=== PATIENT | male | born 1960 | race Caucasian/White ===

== ENCOUNTER 2019-11-18 14:42 | Emergency (ER) | payer BC ==
[2019-11-18 14:52] VITALS: BP 101/55
== END 2019-11-18 16:54 | disposition left against medical advice (07) ==
LOC: ER 14:42
DX: Z53.21 Procedure and treatment not carried out due to patient leaving prior to being seen by health care provider (principal)

== ENCOUNTER 2019-11-25 13:07 | Inpatient (IN) | payer BC ==
[2019-11-25] MEDS ORDERED: HYDROCODONE/ACETAMINOPHEN 5-325 MG TABLET PO ONE (15:13)
--- NOTE | 2019-11-25 15:16 | ER Document Report ---
ED Medical Screen (RME) - General Chief Complaint: Insect Bite Stated Complaint: SPIDER BITE Time Seen by Provider: 11/25/19 15:09 Primary Care Provider: KEVIN CABRERA MD [Primary Care Provider] - Follow up as needed Notes: Patient is a 59-year-old male who presents to the emergency department with a chief complaint of right fourth finger pain. Patient states that he was "bit by something" but cannot recall what it was. This happened 2 days ago. Patient states that he is unable to flex or extend his finger. States that his "whole body does not feel right." States he took [id number] BC powders to help with the pain, but did not help. Exam: Patient unable to flex right fourth digit. I have greeted and performed a rapid initial assessment of this patient. A comprehensive ED assessment and evaluation of the patient, analysis of test results and completion of medical decision making process will be conducted by an additional ED providers. TRAVEL OUTSIDE OF THE [place] IN LAST 30 DAYS: No - Related Data Allergies/Adverse Reactions: No Known Allergies Allergy (Unverified 12/19/13 20:08) Home Medications: flomax, zoloft, tadalafil, lisinopril Past Medical History - Social History Chew tobacco use (# tins/day): No Frequency of alcohol use: Heavy Family history: Reviewed & Not Pertinent Neurological Medical History: Denies: Hx Seizures GI Medical History: Comment Only: Hx Ulcer - anxiety, L5 herniated disc, right shoulder muscle tear, RLS Musculoskeltal Medical History: Reports Hx Arthritis Past Surgical History: Reports: Hx Orthopedic Surgery - multiple - Immunizations Hx Diphtheria, Pertussis, Tetanus Vaccination: Yes Physical Exam - Vital signs Vitals: Temp Pulse Resp BP Pulse Ox 98.0 F 69 18 100/65 95 11/25/19 13:12 11/25/19 13:12 11/25/19 13:12 11/25/19 13:12 11/25/19 13:12 Course - Vital Signs Vital signs: Temp Pulse Resp BP Pulse Ox 98.0 F 69 18 100/65 95 11/25/19 15:09 11/25/19 13:12 11/25/19 13:12 11/25/19 13:12 11/25/19 13:12 Doctor's Discharge - Discharge Referrals: KEVIN CABRERA MD [Primary Care Provider] - Follow up as needed
[2019-11-25 16:04] LABS: ABSOLUTE BASOPHILS # (AUTO) 0.1 10^3/uL (0.0-0.2); ABSOLUTE LYMPHOCYTES (AUTO) 1.1 10^3/uL (0.5-4.7); ABSOLUTE MONOCYTES (AUTO) 0.9 10^3/uL (0.1-1.4); ABSOLUTE NEUT (AUTO) 10.2 10^3/uL (1.7-8.2); BASOPHILS % (AUTO) 0.6 % (0-2); EOSINOPHILS % (AUTO) 0.2 % (0-6); HEMATOCRIT 39.6 % (37.9-51.0); HEMOGLOBIN 12.8 g/dL (13.5-17.0); LYMPHOCYTES % (AUTO) 8.6 % (13-45); MEAN CORPUSCULAR HEMOGLOBIN 29.3 pg (27.0-33.4); MEAN CORPUSCULAR HGB CONC 32.3 g/dL (32.0-36.0); MEAN CORPUSCULAR VOLUME 91 fl (80-97); MONOCYTES % (AUTO) 7.4 % (3-13); PLATELET COUNT 251 10^3/uL (150-450); RED BLOOD COUNT 4.36 10^6/uL (4.35-5.55); RED CELL DISTRIBUTION WIDTH 19.8 % (11.5-14.0); SEGMENTED NEUTROPHILS % (AUTO) 83.2 % (42-78); TOTAL CELLS COUNTED % (AUTO) 100 %; WHITE BLOOD COUNT 12.2 10^3/uL (4.0-10.5)
--- NOTE | 2019-11-25 16:11 | RADIOLOGY REPORT (SQ) ---
EXAM DESCRIPTION: FINGER RIGHT IMAGES COMPLETED DATE/TIME: 11/25/2019 4:02 pm REASON FOR STUDY: right finger swelling COMPARISON: None. NUMBER OF VIEWS: Three views. TECHNIQUE: AP, lateral, and oblique images acquired of the right fourth finger. LIMITATIONS: None. FINDINGS: MINERALIZATION: Normal. BONES: No acute fracture or dislocation. No worrisome bone lesions. SOFT TISSUES: Soft tissue swelling. No radiopaque foreign bodies. No fracture. OTHER: No other significant finding. IMPRESSION: Soft tissue swelling. No foreign bodies. COMMENT: SITE OF TRAUMA/COMPLAINT MARKED/STAMP COMPLETED: NOT APPLICABLE. TECHNICAL DOCUMENTATION: JOB ID: [id number] 2010 [employer]- All Rights Reserved Reading location - IP/workstation name: [email or web address]
[2019-11-25 16:18] LABS: ANION GAP 12 (5-19); BLOOD UREA NITROGEN 7 mg/dL (7-20); CALCIUM 8.9 mg/dL (8.4-10.2); CARBON DIOXIDE 20 mmol/L (22-30); CHLORIDE 104 mmol/L (98-107); GLUCOSE 107 mg/dL (75-110); POTASSIUM 3.9 mmol/L (3.6-5.0)
[2019-11-25] MEDS ORDERED: CEFTRIAXONE INJ 1000 MG VIAL IM ONE (17:17)
--- NOTE | 2019-11-25 17:52 | ER Document Report ---
ED Skin Rash/Insect Bite/Abscs - General Chief Complaint: Insect Bite Stated Complaint: SPIDER BITE Time Seen by Provider: 11/25/19 15:09 Mode of Arrival: Ambulatory Information source: Patient Notes: 59-year-old male presented to ED pain and swelling to the right 4th finger. He states that 2 days ago he noticed an insect bite to the end of his right 4th finger. He states by the end of the day it was draining some clear fluids and his finger was swollen to the first knuckle by the end of that day it was swollen to the next knuckle and by yesterday afternoon it was swollen into his hand today now he has red streaks in his arm. He is alert oriented respirations regular nonlabored speaking in full sentences. He has significant tenderness to the flexor tendon to the finger and the hand. I did consult Dr. Guillaume who came and looked at the hand and suggested an orthopedic consult. I consulted Dr. Romero who came and looked at the hand and stated that the patient needs to be admitted tonight and possibly go to surgery in the morning. He states he would put it in all admission orders but to please keep the hand elevated by using an IV pole to keep his hand elevated. TRAVEL OUTSIDE OF THE [place] IN LAST 30 DAYS: No - HPI Patient complains to provider of: Tender/swollen area, Insect bite - Infected swollen, Other - Significant tenderness to the flexor tendon Onset: Other - Monday Onset/Duration: Gradual Quality of pain: Sharp, Throbbing Severity: Severe Pain Level: 5 Skin Character: Erythema, Swelling, Tenderness Quality of rash: Painful Identify cause: Yes - Insect bite Exacerbated by: Movement, Walking Relieved by: Denies Similar symptoms previously: No Recently seen / treated by doctor: No - Related Data Allergies/Adverse Reactions: No Known Allergies Allergy (Unverified 12/19/13 20:08) Home Medications: flomax, zoloft, tadalafil, lisinopril Past Medical History - Social History Smoking Status: Current Every Day Smoker Cigarette use (# per day): Yes - Half pack a day Chew tobacco use (# tins/day): No Frequency of alcohol use: None Drug Abuse: None Occupation: brush painter Family History: Reviewed & Not Pertinent Patient has suicidal ideation: No Patient has homicidal ideation: No - Past Medical History Cardiac Medical History: Reports: None Pulmonary Medical History: Reports: None EENT Medical History: Reports: None Neurological Medical History: Reports: None Endocrine Medical History: Reports: None Renal/ Medical History: Reports: None Malignancy Medical History: Reports None GI Medical History: Reports: Hx Ulcer Musculoskeletal Medical History: Reports Hx Arthritis, Reports Hx Musculoskeletal Deformity - Herniated disc l5, Reports Hx Musculoskeletal Trauma - Right shoulder SLAP tear, Reports Hx Restless Leg Syndrome Skin Medical History: Reports None Psychiatric Medical History: Reports: Hx Anxiety Traumatic Medical History: Reports: None Infectious Medical History: Reports: None Past Surgical History: Reports: Hx Orthopedic Surgery - multiple - Immunizations Hx Diphtheria, Pertussis, Tetanus Vaccination: Yes Review of Systems - Review of Systems Constitutional: No symptoms reported EENT: No symptoms reported Cardiovascular: No symptoms reported Respiratory: No symptoms reported Gastrointestinal: No symptoms reported Genitourinary: No symptoms reported Male Genitourinary: No symptoms reported Musculoskeletal: Other - Right 4th finger swollen painful red with streaking up the wrist Skin: Other - Red swollen right 4th finger with insect bite to the tip of the finger Hematologic/Lymphatic: No symptoms reported Neurological/Psychological: No symptoms reported Physical Exam - Vital signs Vitals: Temp Pulse Resp BP Pulse Ox 98.0 F 69 18 100/65 95 11/25/19 13:12 11/25/19 13:12 11/25/19 13:12 11/25/19 13:12 11/25/19 13:12 Interpretation: Normal - General General appearance: Appears well, Alert - HEENT Head: Normocephalic, Atraumatic Eyes: Normal Pupils: PERRL - Respiratory Respiratory status: No respiratory distress Chest status: Nontender Breath sounds: Normal Chest palpation: Normal - Cardiovascular Rhythm: Regular Heart sounds: Normal auscultation Murmur: No - Abdominal Inspection: Normal Distension: No distension Bowel sounds: Normal Tenderness: Nontender Organomegaly: No organomegaly - Back Back: Normal, Nontender - Extremities General lower extremity: Normal inspection, Nontender, Normal color, Normal ROM, Normal temperature, Normal weight bearing. No: Geraldo's sign Wrist: Tender, Limited ROM Hand: Tender, No evidence of human bite, No evidence of FB, Swelling, Tendon deficit, Other - Erythema right 4th finger. No: Abrasion, Deformity, Dislocation, Ecchymosis, Instability, Nail injury - Neurological Neuro grossly intact: Yes Cognition: Normal Orientation: AAOx4 [place] Coma Scale Eye Opening: Spontaneous [place] Coma Scale Verbal: Oriented [place] Coma Scale Motor: Obeys Commands [place] Coma Scale Total: 15 Speech: Normal Motor strength normal: LUE, RUE, LLE, RLE Sensory: Normal - Psychological Associated symptoms: Normal affect, Normal mood - Skin Skin Temperature: Warm Skin Moisture: Dry Skin Color: Normal Course - Re-evaluation Re-evalutation: 11/26/19 02:21 Patient has severe tenderness to the flexor tendon to the ring finger. This was discussed with Dr. Romero he did come and see the patient. He did agree to admit the patient. Patient was admitted to Dr. Romero and he wrote admission orders shortly thereafter. - Vital Signs Vital signs: Temp Pulse Resp BP Pulse Ox 98.9 F 58 L 17 141/68 H 96 11/25/19 22:06 11/25/19 22:06 11/25/19 22:06 11/25/19 22:06 11/25/19 22:06 - Laboratory Result Diagrams: 11/25/19 15:30 11/25/19 20:55 Laboratory results interpreted by me: 11/25/19 11/25/19 11/25/19 15:30 15:30 15:30 WBC 12.2 H Hgb 12.8 L RDW 19.8 H Lymph % (Auto) 8.6 L Absolute Neuts (auto) 10.2 H Seg Neutrophils % 83.2 H Sodium 136.3 L Carbon Dioxide 20 L C-Reactive Protein 17.6 H - Diagnostic Test Radiology reviewed: Image reviewed, Reports reviewed Discharge - Discharge Clinical Impression: Cellulitis of right ring finger Disposition: ADMITTED INPATIENT Admitting Provider: bartolome Unit Admitted: Surgical Floor
--- NOTE | 2019-11-25 18:06 | PDOC H&P ---
History of Present Illness Admission Date/PCP: KEVIN CABRERA MD Patient complains of: Pain right ring finger History of Present Illness: ZENIA STERN is a 59 year old male who sustained a bite to his ring finger he denied seeing the actual bite but noticed over the the past 24 hours redness swelling and pain worsened. He was at work today when the pain became too severe. Tracking further up into his forearm in the past 12 hours at work. Denies numbness he he is also noticed the swelling. Was brought to the emergency room. Denies fever chills or sweats. Pain worse with attempted motion. Denies numbness or tingling. Pain 5/5 with motion. Denies drugs illicit drug use. Past Medical History Neurological Medical History: Denies: Seizures Musculoskeltal Medical History: Reports: Arthritis Past Surgical History Past Surgical History: Reports: Orthopedic Surgery - multiple Social History Smoking Status: Current Every Day Smoker Electronic Cigarette use?: No Frequency of Alcohol Use: Occasional Hx Recreational Drug Use: No Hx Prescription Drug Abuse: No Family History Family History: Reviewed & Not Pertinent Parental Family History Reviewed: No Children Family History Reviewed: No Sibling(s) Family History Reviewed.: No Medication/Allergy Home Medications: Pramipexole Di-HCl [Pramipexole Dihydrochloride] 2 tab PO DAILY 02/22/16 Sertraline HCl 1 tab PO DAILY 02/22/16 Zolpidem Tartrate 1 tab PO QHS 02/22/16 Omeprazole 40 mg PO DAILY #30 capsule. 02/26/16 Allergies/Adverse Reactions: No Known Allergies Allergy (Unverified 12/19/13 20:08) Review of Systems Constitutional: PRESENT: as per HPI. ABSENT: chills, fever(s), headache(s), weight gain, weight loss Eyes: ABSENT: visual disturbances Ears: ABSENT: hearing changes Cardiovascular: ABSENT: chest pain, dyspnea on exertion, edema, orthropnea, palpitations Respiratory: ABSENT: cough, hemoptysis Gastrointestinal: ABSENT: abdominal pain, constipation, diarrhea, hematemesis, hematochezia, nausea, vomiting Genitourinary: ABSENT: dysuria, hematuria Musculoskeletal: PRESENT: as per HPI Integumentary: ABSENT: rash, wounds Neurological: ABSENT: abnormal gait, abnormal speech, confusion, dizziness, focal weakness, syncope Psychiatric: ABSENT: anxiety, depression, homidical ideation, suicidal ideation Endocrine: ABSENT: cold intolerance, heat intolerance, menstrual abnormalities, polydipsia, polyuria Hematologic/Lymphatic: ABSENT: easy bleeding, easy bruising, lymphadenopathy Physical Exam Vital Signs: Temp Pulse Resp BP Pulse Ox 98.0 F 69 18 100/65 95 11/25/19 15:09 11/25/19 13:12 11/25/19 13:12 11/25/19 13:12 11/25/19 13:12 Intake & Output 11/24/19 11/25/19 11/26/19 06:59 06:59 06:59 Weight 85.5 kg General appearance: PRESENT: no acute distress, well-developed, well-nourished Head exam: PRESENT: atraumatic, normocephalic Eye exam: PRESENT: conjunctiva pink, EOMI, PERRLA. ABSENT: scleral icterus Ear exam: PRESENT: normal external ear exam Mouth exam: PRESENT: moist, tongue midline Neck exam: PRESENT: full ROM. ABSENT: carotid bruit, JVD, lymphadenopathy, thyromegaly Respiratory exam: PRESENT: unlabored Cardiovascular exam: PRESENT: RRR. ABSENT: diastolic murmur, rubs, systolic murmur Pulses: PRESENT: normal dorsalis pedis pul, +2 pedal pulses bilateral Vascular exam: PRESENT: normal capillary refill GI/Abdominal exam: PRESENT: normal bowel sounds, soft. ABSENT: distended, guarding, mass, organolmegaly, rebound, tenderness Rectal exam: PRESENT: deferred Musculoskeletal exam: PRESENT: other - Right ring finger: Swelling noted along the ring finger with early erythema. Small puncture wound noted along the distal radial aspect adjacent to the perionychium. Tenderness along the flexor sheath with pain upon active extension. Mild fusiform swelling. Early evidence of lymphangitis along the volar aspect of the forearm. No pain with adjacent small, middle or index finger range of motion. No sensory deficits. Neurological exam: PRESENT: alert, awake, oriented to person, oriented to place, oriented to time, oriented to situation, CN II-XII grossly intact. ABSENT: motor sensory deficit Psychiatric exam: PRESENT: appropriate affect, normal mood. ABSENT: homicidal ideation, suicidal ideation Skin exam: PRESENT: dry, intact, warm. ABSENT: cyanosis, rash Results Laboratory Results: 11/25/19 15:30 11/25/19 15:30 11/25/19 11/25/19 15:30 15:30 WBC 12.2 H RBC 4.36 Hgb 12.8 L Hct 39.6 MCV 91 MCH 29.3 MCHC 32.3 RDW 19.8 H Plt Count 251 Seg Neutrophils % 83.2 H Sodium 136.3 L Potassium 3.9 Chloride 104 Carbon Dioxide 20 L Anion Gap 12 BUN 7 Creatinine 0.90 Est GFR ( Amer) > 60 Glucose 107 Calcium 8.9 Impressions: Finger X-Ray 11/25/19 15:13 IMPRESSION: Soft tissue swelling. No foreign bodies. Assessment & Plan - Diagnosis (1) Cellulitis and abscess of finger, unspecified Is this a current diagnosis for this admission?: Yes Plan: Patient has evidence of possible early developing flexor tenosynovitis of the right ring finger after insect bite. Today we discussed treatment options I have recommended proceeding with IV antibiotics and observation for the next 12 hours if symptoms do not improve we will proceed with operative intervention which would include right ring finger irrigation debridement flexor sheath. Patient understands current treatment plan and the fact that if his symptoms do not improve operative intervention will be warranted. Risk and benefits of the operative procedure have been explained risk including recurrent infection, postoperative pain, postoperative stiffness he has verbalized understanding consented for surgical procedure.
[2019-11-25] MEDS ORDERED: ONDANSETRON HCL INJ/PF 4 MG/2 ML SDV IV PRN (18:08)
--- NOTE | 2019-11-25 18:11 | ER Document Report ---
Doctor's Note Notes: 11/25/19 18:09 This is a 59-year-old male I was asked to see along with nurse practitioner. He sustained an unknown insect bite to the tip of the right index finger several days ago. Since then he has had progressive pain swelling and redness along the volar aspect of that finger with streaking now extending up above the wrist. Patient appears quite uncomfortable. I note that he has tenderness redness and swelling over the volar aspect of the right ring finger and has 2 small puncture wounds at the end of the finger with no visible drainage. There is no obvious fluctuance but there is warmth and redness and he is very tender. White count is 12.4. Vital signs are normal. He does not appear toxic. Patient appears to have cellulitis and possibly abscess forming along the tendon sheath of the right ring finger. I recommended IV antibiotics, IV analgesics and orthopedic consultation for admission.
[2019-11-25] MEDS ORDERED: PIPERACILLIN/TAZOBACTAM 3.375 GM VIAL IV ONE (18:23)
[2019-11-25] MEDS ORDERED: VANCOMYCIN HCL 1,750 MG in DEXTROSE 5%-WATER 500 ML IV ONE (18:30)
[2019-11-25] MEDS: MORPHINE SULFATE 10 MG/ML INJ IV PRN ×2 (18:34→22:45)
[2019-11-25] MEDS: PIPERACILLIN SODIUM/TAZOBACTAM 3.375 GM in NORMAL SALINE 100 ML IV SCH ×2 (18:49→23:41)
[2019-11-25] MEDS ORDERED: VANCOMYCIN HCL INJ 1000 MG VIAL IV ONE (19:00)
[2019-11-25] MEDS: OXYCODONE-ACETAMINOPHEN 5-325 MG TABLET PO PRN (20:31)
[2019-11-25 21:29] LABS: ANION GAP 6 (5-19); BLOOD UREA NITROGEN 7 mg/dL (7-20); CALCIUM 8.7 mg/dL (8.4-10.2); CARBON DIOXIDE 26 mmol/L (22-30); CHLORIDE 106 mmol/L (98-107); GLUCOSE 111 mg/dL (75-110)
[2019-11-25] MEDS: RINGERS SOLUTION,LACTATED 1,000 ML IV PRN (23:41)
[2019-11-26] MEDS ORDERED: PIPERACILLIN/TAZOBACTAM 3.375 GM VIAL IV SCH
[2019-11-26] MEDS: OXYCODONE-ACETAMINOPHEN 5-325 MG TABLET PO PRN ×2 (02:35→21:06)
[2019-11-26] MEDS: MORPHINE SULFATE 10 MG/ML INJ IV PRN ×4 (04:03→16:26)
[2019-11-26] MEDS: PIPERACILLIN SODIUM/TAZOBACTAM 3.375 GM in NORMAL SALINE 100 ML IV SCH ×3 (05:12→17:06)
[2019-11-26] MEDS ORDERED: VANCOMYCIN HCL INJ 1000 MG VIAL ONE (05:21)
[2019-11-26] MEDS: VANCOMYCIN HCL 750 MG in DEXTROSE 5%-WATER 250 ML IV SCH ×3 (05:56→21:44)
[2019-11-26 07:24] LABS: ABSOLUTE BASOPHILS # (AUTO) 0.1 10^3/uL (0.0-0.2); ABSOLUTE EOSINOPHILS # (AUTO) 0.1 10^3/uL (0.0-0.6); ABSOLUTE LYMPHOCYTES (AUTO) 1.2 10^3/uL (0.5-4.7); ABSOLUTE MONOCYTES (AUTO) 1.1 10^3/uL (0.1-1.4); ABSOLUTE NEUT (AUTO) 8.3 10^3/uL (1.7-8.2); BASOPHILS % (AUTO) 0.5 % (0-2); EOSINOPHILS % (AUTO) 0.7 % (0-6); HEMATOCRIT 38.4 % (37.9-51.0); HEMOGLOBIN 12.7 g/dL (13.5-17.0); LYMPHOCYTES % (AUTO) 10.8 % (13-45); MEAN CORPUSCULAR HEMOGLOBIN 29.8 pg (27.0-33.4); MEAN CORPUSCULAR VOLUME 91 fl (80-97); MONOCYTES % (AUTO) 10.7 % (3-13); PLATELET COUNT 224 10^3/uL (150-450); RED BLOOD COUNT 4.24 10^6/uL (4.35-5.55); RED CELL DISTRIBUTION WIDTH 19.5 % (11.5-14.0); SEGMENTED NEUTROPHILS % (AUTO) 77.3 % (42-78); TOTAL CELLS COUNTED % (AUTO) 100 %; WHITE BLOOD COUNT 10.7 10^3/uL (4.0-10.5)
--- NOTE | 2019-11-26 07:29 | PDOC PROGRESS REPORT ---
Subjective Progress Note for:: 11/26/19 Subjective:: Patient lying bed comfortably. States he continues to have pain with pressure in his ring finger has seen some improvement in terms of his forearm. Denies fever chills or sweats. Denies numbness or tingling. Pain 4/5. Reason For Visit: CELLULITIS RIGHT RING FINGER Physical Exam Vital Signs: Temp Pulse Resp BP Pulse Ox 98.7 F 51 L 17 133/73 H 90 L 11/26/19 04:22 11/26/19 04:22 11/26/19 04:22 11/26/19 04:22 11/26/19 04:22 Intake & Output 11/25/19 11/26/19 11/27/19 06:59 06:59 06:59 Intake Total 200 Output Total 260 Balance -60 Weight 83 kg Musculoskeletal exam: PRESENT: other - Right hand: Mild fusiform swelling of the ring finger no swelling noted along the proximal wrist or forearm. Previous lymphangitis improved along the forearm. No pain with wrist range of motion. Exquisite tenderness only flexor sheath most notably along the volar aspect of the proximal phalanx. Small wound along the dorsal radial aspect without purulent drainage. Pain with passive extension. Cap refill less than 2 seconds. Normal skin turgor. Results Laboratory Results: 11/25/19 20:55 11/25/19 11/25/19 11/25/19 15:30 15:30 15:30 WBC 12.2 H RBC 4.36 Hgb 12.8 L Hct 39.6 MCV 91 MCH 29.3 MCHC 32.3 RDW 19.8 H Plt Count 251 Seg Neutrophils % 83.2 H Sodium 136.3 L Potassium 3.9 Chloride 104 Carbon Dioxide 20 L Anion Gap 12 BUN 7 Creatinine 0.90 Est GFR ( Amer) > 60 Glucose 107 Calcium 8.9 C-Reactive Protein 17.6 H 11/25/19 20:55 WBC RBC Hgb Hct MCV MCH MCHC RDW Plt Count Seg Neutrophils % Sodium 138.3 Potassium 4.0 Chloride 106 Carbon Dioxide 26 Anion Gap 6 BUN 7 Creatinine 0.82 Est GFR ( Amer) > 60 Glucose 111 H Calcium 8.7 C-Reactive Protein Impressions: Finger X-Ray 11/25/19 15:13 IMPRESSION: Soft tissue swelling. No foreign bodies. Assessment & Plan - Diagnosis (1) Cellulitis and abscess of finger, unspecified Is this a current diagnosis for this admission?: Yes Plan: Patient has developed pyogenic flexor tenosynovitis of the ring finger. 12 hours of IV antibiotics have failed to provide significant improvement in terms of his digit. At this point I have recommended operative intervention with screws irrigation debridement of the right ring finger. Patient states he will require an additional 24-40 hours of IV antibiotics discharged home on 14 days of IV antibiotics. Risk and benefits of surgical procedure have been explained to the patient risk including neurovascular risk, postoperative pain, posto perative stiffness, recurrent infection patient verbalized understanding consented for surgical procedure. - Time Time Spent with patient: Less than 15 minutes
[2019-11-26] MEDS ORDERED: VANCOMYCIN HCL INJ 1000 MG VIAL IV SCH (10:00)
[2019-11-26] MEDS ORDERED: MIDAZOLAM 2 MG/2 ML INJ ONE (18:52)
[2019-11-26] MEDS ORDERED: FENTANYL CITRATE INJ/PF 100 MCG/2 ML AMPUL ONE ×2 (18:52→20:14)
[2019-11-26] MEDS ORDERED: ONDANSETRON HCL INJ/PF 4 MG/2 ML SDV ONE (18:52)
[2019-11-26] MEDS ORDERED: PROPOFOL INJ 200 MG/20 ML VIAL IV ONE (18:53)
[2019-11-26] MEDS ORDERED: LIDOCAINE 1% INJ-PF (10 MG/ML) 30 ML SDV ONE (19:02)
[2019-11-26] MEDS ORDERED: FENTANYL CITRATE INJ/PF 100 MCG/2 ML AMPUL IV PRN ×3 (19:26)
[2019-11-26] MEDS ORDERED: MEPERIDINE HCL/PF INJ 25 MG/1 ML DISP.SYRIN IV PRN (19:26)
[2019-11-26] MEDS ORDERED: DIPHENHYDRAMINE HCL 50 MG/ML VIAL IV PRN (19:26)
[2019-11-26] MEDS ORDERED: PROMETHAZINE HCL INJ 25 MG/1 ML VIAL IV PRN (19:26)
[2019-11-26] MEDS ORDERED: MORPHINE SULFATE 10 MG/ML INJ IV PRN (19:26)
--- NOTE | 2019-11-26 19:47 | Operative Report ---
Operative Report DATE OF SURGERY: 11/26/19 PREOPERATIVE DIAGNOSIS: Right ring finger flexor tenosynovitis POSTOPERATIVE DIAGNOSIS: Same OPERATION: Right ring finger irrigation and debridement flexor tendon sheath SURGEON: CHARBEL CANAS ANESTHESIA: LMAC TISSUE REMOVED OR ALTERED: Aerobic/anaerobic/AFB/fungal cultures obtained COMPLICATIONS: None ESTIMATED BLOOD LOSS: Minimal PROCEDURE: Indication for above procedure: 59-year-old male who developed swelling and pain throughout his ring finger after sustaining a unknown insect bite approximately 48 hours ago. Patient's swelling and pain was unchanged after trial of IV antibiotics at that point decision was made to proceed with operative intervention. Risk and benefits of surgical procedure were explained to the patient who verbalized understanding consented for surgical procedure. Procedure in detail: Patient was seen and evaluated in the preoperative holding area. The RIGHT upper extremity was initialized and marked. Patient receiving scheduled IV antibiotics for bacterial prophylaxis. Patient was taken back to the operative room where transferred to the operative table. Once they were adequately anesthetized a nonsterile tourniquet was placed on the upper extremity. A surgical team debriefing was performed ensuring all instrumentation was available, the surgical procedure was discussed with possible concerns reviewed. A digital block was performed utilizing 10 mL of 1% lidocaine without epinephrine. The upper extremity was prepped with Betadine and draped in a sterile fashion. A timeout was done identifying correct patient, procedure and extremity everyone in attendance agree with this and verbalized no concerns. The extremity was elevated the tourniquet was inflated to 250 mmHg. Longitudinal skin incision was made centered over the A1 eulalia of the ring finger. The radial and ulnar neurovascular bundles were identified and retracted from the wound. The A1 eulalia was identified and incised. The A1 eulalia was released just proximal to the level of the A2 eulalia. Small amount of cloudy drainage was noted within the flexor sheath but no gross purulence. Aerobic, anaerobic, AFB and fungal cultures were obtained from the fluid a transverse incision was then placed over the A5 eulalia at the level of the DIP joint flexion crease. Blunt dissection was performed A5 eulalia was opened and a pediatric feeding tube was passed from antegrade to retrograde and copious amount irrigation was performed within the flexor sheath. No remanent cloudy fluid or purulence was appreciated after debridement and irrigation was complete. Any nonviable adipose and soft tissue was excised. Pediatric feeding tube was left in place to allow drainage. Skin incisions were closed loosely with interrupted 4-0 nylon suture. Sponge counts, instrument counts, needle counts counts were correct. Patient was then awoken from anesthesia. Transferred from the operating room table to the operating room stretcher. There was no intraoperative complications patient tolerated procedure well stable to PACU. Postoperative plan: Patient will continue antibiotics for additional 48 hours if he sees clinical improvement will consider discharge home on p.o. antibiotics pending culture results.
[2019-11-26 22:14] LABS: VANCOMYCIN,TROUGH 11.3 ug/mL (5.0-20.0)
[2019-11-26] MEDS: HYDROMORPHONE HCL INJ/PF 2 MG/ML AMPULE IV SCH (23:13)
[2019-11-26] MEDS: RINGERS SOLUTION,LACTATED 1,000 ML IV PRN (23:14)
[2019-11-27] MEDS: PIPERACILLIN SODIUM/TAZOBACTAM 3.375 GM in NORMAL SALINE 100 ML IV SCH ×5 (00:18→23:12)
[2019-11-27] MEDS: HYDROMORPHONE HCL INJ/PF 2 MG/ML AMPULE IV SCH ×6 (02:48→21:20)
[2019-11-27] MEDS: VANCOMYCIN HCL 750 MG in DEXTROSE 5%-WATER 250 ML IV SCH ×3 (05:15→21:20)
[2019-11-27] MEDS: OXYCODONE-ACETAMINOPHEN 5-325 MG TABLET PO PRN (06:55)
[2019-11-27 07:00] LABS: ABSOLUTE EOSINOPHILS # (AUTO) 0.1 10^3/uL (0.0-0.6); ABSOLUTE MONOCYTES (AUTO) 0.8 10^3/uL (0.1-1.4); ABSOLUTE NEUT (AUTO) 8.9 10^3/uL (1.7-8.2); BASOPHILS % (AUTO) 0.5 % (0-2); EOSINOPHILS % (AUTO) 0.5 % (0-6); HEMATOCRIT 35.3 % (37.9-51.0); HEMOGLOBIN 11.6 g/dL (13.5-17.0); LYMPHOCYTES % (AUTO) 9.3 % (13-45); MEAN CORPUSCULAR HEMOGLOBIN 29.9 pg (27.0-33.4); MEAN CORPUSCULAR HGB CONC 32.8 g/dL (32.0-36.0); MEAN CORPUSCULAR VOLUME 91 fl (80-97); MONOCYTES % (AUTO) 7.8 % (3-13); PLATELET COUNT 203 10^3/uL (150-450); RED BLOOD COUNT 3.88 10^6/uL (4.35-5.55); RED CELL DISTRIBUTION WIDTH 19.3 % (11.5-14.0); SEGMENTED NEUTROPHILS % (AUTO) 81.9 % (42-78); TOTAL CELLS COUNTED % (AUTO) 100 %; WHITE BLOOD COUNT 10.9 10^3/uL (4.0-10.5)
--- NOTE | 2019-11-27 07:27 | PDOC PROGRESS REPORT ---
Subjective Progress Note for:: 11/27/19 Reason For Visit: CELLULITIS RIGHT RING FINGER 59-year-old white male postop day 1 status post I&D of a right hand flexor Kendra synovitis. Uneventful postoperative course. Patient reports an improvement of his pain from an 11 to a level 4 Physical Exam Vital Signs: Temp Pulse Resp BP Pulse Ox 37.2 C 62 18 97/50 L 91 L 11/27/19 03:16 11/27/19 03:16 11/27/19 03:16 11/27/19 03:16 11/27/19 03:16 Intake & Output 11/26/19 11/27/19 11/28/19 06:59 06:59 06:59 Intake Total 200 3524 100 Output Total 260 1205 Balance -60 2319 100 Weight 83 kg 83.7 kg General appearance: PRESENT: no acute distress, mild distress Head exam: PRESENT: normocephalic Respiratory exam: PRESENT: unlabored Cardiovascular exam: PRESENT: RRR Vascular exam: PRESENT: normal capillary refill GI/Abdominal exam: PRESENT: soft Rectal exam: PRESENT: deferred Musculoskeletal exam: PRESENT: other - Right hand dressing in place. Radial 3 digits are visible. There is brisk capillary refill. Results Laboratory Results: 11/27/19 06:35 11/26/19 21:08 11/26/19 11/26/19 11/27/19 06:32 21:08 06:35 WBC 10.7 H 10.9 H RBC 4.24 L 3.88 L Hgb 12.7 L 11.6 L Hct 38.4 35.3 L MCV 91 91 MCH 29.8 29.9 MCHC 33.0 32.8 RDW 19.5 H 19.3 H Plt Count 224 203 Seg Neutrophils % 77.3 81.9 H Creatinine 0.87 Est GFR ( Amer) > 60 Impressions: Finger X-Ray 11/25/19 15:13 IMPRESSION: Soft tissue swelling. No foreign bodies. Status: Imported from PACS Assessment & Plan - Diagnosis (1) Cellulitis of right ring finger Is this a current diagnosis for this admission?: Yes Plan: Alpesh for continued antibiotics with anticipated dressing change tomorrow morning and formulation of plans thereafter - Time Time Spent with patient: 15-24 minutes Anticipated discharge: Other Anticipated DC Timeframe: Other
[2019-11-28] MEDS: HYDROMORPHONE HCL INJ/PF 2 MG/ML AMPULE IV SCH ×6 (01:42→21:24)
[2019-11-28] MEDS: RINGERS SOLUTION,LACTATED 1,000 ML IV PRN (03:21)
[2019-11-28] MEDS: PIPERACILLIN SODIUM/TAZOBACTAM 3.375 GM in NORMAL SALINE 100 ML IV SCH ×3 (05:09→18:06)
[2019-11-28] MEDS: VANCOMYCIN HCL 750 MG in DEXTROSE 5%-WATER 250 ML IV SCH ×3 (05:09→21:25)
[2019-11-28 06:25] LABS: ABSOLUTE BASOPHILS # (AUTO) 0.1 10^3/uL (0.0-0.2); ABSOLUTE EOSINOPHILS # (AUTO) 0.1 10^3/uL (0.0-0.6); ABSOLUTE NEUT (AUTO) 9.3 10^3/uL (1.7-8.2); BASOPHILS % (AUTO) 0.7 % (0-2); EOSINOPHILS % (AUTO) 0.9 % (0-6); HEMATOCRIT 36.3 % (37.9-51.0); HEMOGLOBIN 11.6 g/dL (13.5-17.0); LYMPHOCYTES % (AUTO) 8.4 % (13-45); MEAN CORPUSCULAR HEMOGLOBIN 29.4 pg (27.0-33.4); MEAN CORPUSCULAR VOLUME 92 fl (80-97); MONOCYTES % (AUTO) 9.1 % (3-13); PLATELET COUNT 220 10^3/uL (150-450); RED BLOOD COUNT 3.95 10^6/uL (4.35-5.55); RED CELL DISTRIBUTION WIDTH 18.6 % (11.5-14.0); SEGMENTED NEUTROPHILS % (AUTO) 80.9 % (42-78); TOTAL CELLS COUNTED % (AUTO) 100 %; WHITE BLOOD COUNT 11.5 10^3/uL (4.0-10.5)
--- NOTE | 2019-11-28 09:32 | PDOC PROGRESS REPORT ---
Subjective Progress Note for:: 11/28/19 Subjective:: Patient lying bed comfortably. States he continues to have pain with pressure in his ring finger has seen some improvement with some of his discomfort. Denies numbness or tingling. Pain 4/5. Denies fever or chills. Reason For Visit: CELLULITIS RIGHT RING FINGER Physical Exam Vital Signs: Temp Pulse Resp BP Pulse Ox 98.3 F 56 L 20 119/63 94 11/28/19 08:43 11/28/19 08:43 11/28/19 08:43 11/28/19 08:43 11/28/19 08:43 Intake & Output 11/27/19 11/28/19 11/29/19 06:59 06:59 06:59 Intake Total 3524 4192 250 Output Total 1205 Balance 2319 4192 250 Weight 83.7 kg 85.5 kg Musculoskeletal exam: PRESENT: other - Right middle finger: Tenderness to palpation on the PIP joint radially and ulnarly. Swelling localized on the PIP joint pain with PIP joint range of motion. Tenderness along the flexor sheath proximally at the A1 eulalia has notably improved. Pain with passive extension. Cap refill less than 2 seconds. No sensory deficits. Results Laboratory Results: 11/28/19 06:00 11/26/19 21:08 11/28/19 06:00 WBC 11.5 H RBC 3.95 L Hgb 11.6 L Hct 36.3 L MCV 92 MCH 29.4 MCHC 32.0 RDW 18.6 H Plt Count 220 Seg Neutrophils % 80.9 H Impressions: Finger X-Ray 11/25/19 15:13 IMPRESSION: Soft tissue swelling. No foreign bodies. Assessment & Plan - Diagnosis (1) Cellulitis and abscess of finger, unspecified Is this a current diagnosis for this admission?: Yes Plan: Patient has developed pyogenic flexor tenosynovitis of the ring finger clinically patient has seen slight improvement however continues to have discomfort mainly on the PIP joint despite patient's inoculation site distal to the PIP joint there is a possibility of residual infection within the PIP joint concomitantly with his flexor tenosynovitis. At this point will obtain MRI to further evaluate etiology given patient's persistent leukocytosis. - Time Time Spent with patient: Less than 15 minutes
[2019-11-28] MEDS ORDERED: ACETAMINOPHEN 325 MG TABLET PO ONE (11:15)
[2019-11-28] MEDS ORDERED: MAG HYDROX/AL HYDROX/SIMETH SUSP 30 ML UDCUP PO PRN (11:29)
--- NOTE | 2019-11-28 14:53 | RADIOLOGY REPORT (SQ) ---
EXAM DESCRIPTION: MRI RT UPPER EXTREMITY COMBO IMAGES COMPLETED DATE/TIME: 11/28/2019 2:35 pm REASON FOR STUDY: Right Ring Finger Swelling COMPARISON: None. TECHNIQUE: Multiplanar imaging of the right 4th finger to include T1-weighted, postcontrast T1-weigh alma, and T2-weighted images. CONTRAST TYPE AND DOSE: 15 mL Prohance. RENAL FUNCTION: Not indicated. ACR Type II contrast agent associated with few, if any, unconfounded cases of NSF LIMITATIONS: Motion artifact. FINDINGS: BONE MARROW: No significant marrow abnormality. SOFT TISSUES: Inflammatory changes in the soft tissues. No abscess. OTHER: No other significant finding. IMPRESSION: No abscess or osteomyelitis. TECHNICAL DOCUMENTATION: JOB ID: [id number] 2010 [employer]- All Rights Reserved Reading location - IP/workstation name: [email or web address]
[2019-11-29] MEDS: PIPERACILLIN SODIUM/TAZOBACTAM 3.375 GM in NORMAL SALINE 100 ML IV SCH ×4 (01:34→18:01)
[2019-11-29] MEDS: HYDROMORPHONE HCL INJ/PF 2 MG/ML AMPULE IV SCH ×2 (01:51→06:19)
[2019-11-29] MEDS: VANCOMYCIN HCL 750 MG in DEXTROSE 5%-WATER 250 ML IV SCH ×3 (08:35→21:51)
--- NOTE | 2019-11-29 08:58 | PDOC PROGRESS REPORT ---
Subjective Progress Note for:: 11/29/19 Subjective:: Patient now doing somewhat better after I&D of flexor Kendra synovitis Reason For Visit: CELLULITIS RIGHT RING FINGER Patient Physical Exam Vital Signs: Temp Pulse Resp BP Pulse Ox 97.7 F 63 18 128/64 H 94 11/29/19 01:03 11/29/19 01:03 11/29/19 01:03 11/29/19 01:03 11/29/19 01:03 Intake & Output 11/28/19 11/29/19 11/30/19 06:59 06:59 06:59 Intake Total 4192 1979 100 Balance 4192 1979 100 Weight 85.5 kg 92.3 kg General appearance: PRESENT: no acute distress Extremities exam: PRESENT: other - Right hand incision site looks excellent patient has a slight blister on the radial side of the finger but otherwise he is flexing and moving the finger a lot more with less pain. Results Laboratory Results: 11/28/19 06:00 11/29/19 04:31 11/29/19 04:31 Creatinine 0.71 Est GFR ( Amer) > 60 Impressions: Finger X-Ray 11/25/19 15:13 IMPRESSION: Soft tissue swelling. No foreign bodies. Upper Extremity MRI 11/28/19 00:00 IMPRESSION: No abscess or osteomyelitis. Assessment & Plan - Time Critical Time spent with patient: Less than 15 minutes Smoking Cessation Education: 3 to 10 minutes Anticipated Discharge Disposition: Home, Self Care Anticipated Discharge Timeframe: within 24 hours - Plan Summary Plan Summary: Plan for him to be discharged tomorrow we will continue IV antibiotics for another day and work on weaning him off the Dilaudid getting him on the Percocet.
[2019-11-29] MEDS: OXYCODONE-ACETAMINOPHEN 5-325 MG TABLET PO SCH ×2 (11:40→17:59)
[2019-11-30] MEDS: PIPERACILLIN SODIUM/TAZOBACTAM 3.375 GM in NORMAL SALINE 100 ML IV SCH ×3 (00:21→13:11)
[2019-11-30] MEDS: OXYCODONE-ACETAMINOPHEN 5-325 MG TABLET PO SCH ×3 (00:22→12:16)
[2019-11-30] MEDS: RINGERS SOLUTION,LACTATED 1,000 ML IV PRN (00:27)
[2019-11-30] MEDS: VANCOMYCIN HCL 750 MG in DEXTROSE 5%-WATER 250 ML IV SCH (06:54)
[2019-11-30 09:19] LABS: ABSOLUTE BASOPHILS # (AUTO) 0.1 10^3/uL (0.0-0.2); ABSOLUTE EOSINOPHILS # (AUTO) 0.1 10^3/uL (0.0-0.6); ABSOLUTE LYMPHOCYTES (AUTO) 0.9 10^3/uL (0.5-4.7); ABSOLUTE NEUT (AUTO) 6.6 10^3/uL (1.7-8.2); BASOPHILS % (AUTO) 0.7 % (0-2); EOSINOPHILS % (AUTO) 1.4 % (0-6); HEMOGLOBIN 11.3 g/dL (13.5-17.0); LYMPHOCYTES % (AUTO) 10.1 % (13-45); MEAN CORPUSCULAR HGB CONC 33.3 g/dL (32.0-36.0); MEAN CORPUSCULAR VOLUME 90 fl (80-97); MONOCYTES % (AUTO) 11.3 % (3-13); PLATELET COUNT 256 10^3/uL (150-450); RED BLOOD COUNT 3.77 10^6/uL (4.35-5.55); RED CELL DISTRIBUTION WIDTH 18.4 % (11.5-14.0); SEGMENTED NEUTROPHILS % (AUTO) 76.5 % (42-78); TOTAL CELLS COUNTED % (AUTO) 100 %; WHITE BLOOD COUNT 8.6 10^3/uL (4.0-10.5)
--- NOTE | 2019-11-30 11:20 | PDOC DISCHARGE SUMMARY ---
Impression - Admit/DC Date/PCP Admission Date/Primary Care Provider: 11/25/19 18:25 JESSICA BARNES PA-C Discharge Date: 11/30/19 - Discharge Diagnosis (1) Cellulitis and abscess of finger, unspecified Is this a current diagnosis for this admission?: Yes - Additional Information Resuscitation Status: Full Code Discharge Diet: As Tolerated Referrals: CHARBEL CANAS DO [ACTIVE STAFF] - 12/09/19 1:30 pm Prescriptions: Amoxicillin/Potassium Clav [Augmentin 875-125 Tablet] 1 tab PO BID #20 tab Oxycodone HCl/Acetaminophen [Percocet 5-325 mg Tablet] 1 tab PO Q6 PRN #25 tab PRN Reason: Home Medications: Pramipexole Di-HCl [Pramipexole Dihydrochloride] 0.5 mg PO QHS 02/22/16 Sertraline HCl 100 mg PO DAILY 02/22/16 Ergocalciferol (Vitamin D2) [Drisdol 50,000 unit (1.25MG) Capsule] 50,000 unit PO LIND@1000 11/26/19 Ferrous Sulfate [Feosol 325 mg Tablet] 324 mg PO BID 11/26/19 Lisinopril [Prinivil 5 mg Tablet] 5 mg PO DAILY 11/26/19 Tadalafil [Cialis] 5 mg PO DAILY 11/26/19 Tamsulosin HCl [Flomax] 0.4 mg PO DAILY 11/26/19 Trazodone HCl [Desyrel 50 mg Tablet] 50 mg PO QHS 11/26/19 Amoxicillin/Potassium Clav [Augmentin 875-125 Tablet] 1 tab PO BID #20 tab 11/30/19 Oxycodone HCl/Acetaminophen [Percocet 5-325 mg Tablet] 1 tab PO Q6 PRN #25 tab 11/30/19 History of Present Illiness History of Present Illness: ZENIA STERN is a 59 year old male who sustained a bite to his ring finger he denied seeing the actual bite but noticed over the the past 24 hours redness swelling and pain worsened. He was at work today when the pain became too severe. Tracking further up into his forearm in the past 12 hours at work. Denies numbness he he is also noticed the swelling. Was brought to the emergency room. Denies fever chills or sweats. Pain worse with attempted motion. Denies numbness or tingling. Pain 5/5 with motion. Denies drugs illicit drug use. Hospital Course Hospital Course: Patient was evaluated orthopedic service on 11/25/2019. Patient subsequently failed to see improvement with IV antibiotics and was taken to the operating room on 11/26/2019 for irrigation and debridement flexor sheath for flexor tenosynovitis. Patient was started on vancomycin and Zosyn upon initial admission. Patient saw slow improvement of the next 3 days however on 12/29/2019 he had plateaued and thus MRI was ordered demonstrating no evidence of abscess, effusion or osteomyelitis. Patient was continued on vancomycin and Zosyn. On 11/30/2019 patient's leukocytosis resolved microbiology report was consistent with group C beta strep. On 11/30/2019 patient's pain significantly improved although he continued to have extension lag his range of motion was improving along with his pain. Denied fever or chills thus decision was made for discharge to home on 11/30/2019 Physical Exam Vital Signs: Temp Pulse Resp BP Pulse Ox 98.5 F 62 18 152/72 H 96 11/30/19 07:51 11/30/19 07:51 11/30/19 07:51 11/30/19 07:51 11/30/19 07:51 Intake & Output 11/29/19 11/30/19 12/01/19 06:59 06:59 06:59 Intake Total 1979 3180 250 Balance 1979 3180 250 Weight 92.3 kg 86 kg General appearance: PRESENT: no acute distress, well-developed, well-nourished Head exam: PRESENT: atraumatic, normocephalic Eye exam: PRESENT: conjunctiva pink, EOMI, PERRLA. ABSENT: scleral icterus Ear exam: PRESENT: normal external ear exam Mouth exam: PRESENT: moist, tongue midline Teeth exam: PRESENT: poor dentation Neck exam: ABSENT: carotid bruit, JVD, lymphadenopathy, thyromegaly Respiratory exam: PRESENT: clear to auscultation maeve. ABSENT: rales, rhonchi, wheezes Cardiovascular exam: PRESENT: RRR. ABSENT: diastolic murmur, rubs, systolic murmur Pulses: PRESENT: normal dorsalis pedis pul Vascular exam: PRESENT: normal capillary refill GI/Abdominal exam: PRESENT: normal bowel sounds, soft. ABSENT: distended, guarding, mass, organolmegaly, rebound, tenderness Rectal exam: PRESENT: deferred Extremities exam: PRESENT: full ROM. ABSENT: calf tenderness, clubbing, pedal edema Musculoskeletal exam: PRESENT: other - Right upper extremity: Ring finger: Erythema significantly improved. Mild residual bruising along the radial aspect of the PIP joint. Pain with terminal PIP joint flexion. 30 degree extension lag of the PIP joint. No pain with passive stretch. There was pain with terminal extension. No palpable effusion. Swelling notably improved. No pain with right mid range of motion the PIP joint which had changed compared to previous examination. Cap refill less than 2 seconds. No sensory deficits. Surgical incisions healing no erythema or drainage. Neurological exam: PRESENT: alert, awake, oriented to person, oriented to place, oriented to time, oriented to situation, CN II-XII grossly intact. ABSENT: motor sensory deficit Psychiatric exam: PRESENT: appropriate affect, normal mood. ABSENT: homicidal ideation, suicidal ideation Skin exam: PRESENT: dry, intact, warm. ABSENT: cyanosis, rash Results Laboratory Results: WBC 8.6 10^3/uL (4.0-10.5) 11/30/19 08:40 RBC 3.77 10^6/uL (4.35-5.55) L 11/30/19 08:40 Hgb 11.3 g/dL (13.5-17.0) L 11/30/19 08:40 Hct 34.0 % (37.9-51.0) L 11/30/19 08:40 MCV 90 fl (80-97) 11/30/19 08:40 MCH 30.0 pg (27.0-33.4) 11/30/19 08:40 MCHC 33.3 g/dL (32.0-36.0) 11/30/19 08:40 RDW 18.4 % (11.5-14.0) H 11/30/19 08:40 Plt Count 256 10^3/uL (150-450) 11/30/19 08:40 Lymph % (Auto) 10.1 % (13-45) L 11/30/19 08:40 Hubbard % (Auto) 11.3 % (3-13) 11/30/19 08:40 Eos % (Auto) 1.4 % (0-6) 11/30/19 08:40 Baso % (Auto) 0.7 % (0-2) 11/30/19 08:40 Absolute Neuts (auto) 6.6 10^3/uL (1.7-8.2) 11/30/19 08:40 Absolute Lymphs (auto) 0.9 10^3/uL (0.5-4.7) 11/30/19 08:40 Absolute Monos (auto) 1.0 10^3/uL (0.1-1.4) 11/30/19 08:40 Absolute Eos (auto) 0.1 10^3/uL (0.0-0.6) 11/30/19 08:40 Absolute Basos (auto) 0.1 10^3/uL (0.0-0.2) 11/30/19 08:40 Seg Neutrophils % 76.5 % (42-78) 11/30/19 08:40 ESR 11 mm/hr (0-20) 11/25/19 15:30 Sodium 138.3 mmol/L (137-145) 11/25/19 20:55 Potassium 4.0 mmol/L (3.6-5.0) 11/25/19 20:55 Chloride 106 mmol/L (98-107) 11/25/19 20:55 Carbon Dioxide 26 mmol/L (22-30) 11/25/19 20:55 Anion Gap 6 (5-19) 11/25/19 20:55 BUN 7 mg/dL (7-20) 11/25/19 20:55 Creatinine 0.71 mg/dL (0.52-1.25) 11/29/19 04:31 Est GFR ( Amer) > 60 (>60) 11/29/19 04:31 Est GFR (MDRD) Non-Af > 60 (>60) 11/29/19 04:31 Glucose 111 mg/dL (75-110) H 11/25/19 20:55 Calcium 8.7 mg/dL (8.4-10.2) 11/25/19 20:55 C-Reactive Protein 17.6 mg/L (<10.0) H 11/25/19 15:30 Time Trough Drawn 210711/26/19 21:08 Vancomycin Trough 11.3 ug/mL (5.0-20.0) 11/26/19 21:08 SARS-CoV-2 (PCR) NEGATIVE (NEGATIVE) 11/25/19 18:40 Impressions: Finger X-Ray 11/25/19 15:13 IMPRESSION: Soft tissue swelling. No foreign bodies. Upper Extremity MRI 11/28/19 00:00 IMPRESSION: No abscess or osteomyelitis. Plan Plan of Treatment: Patient symptoms have notably improved and leukocytosis resolved. At this point decision was made for discharge to home on 11/30/2019. Patient will continue range of motion exercises at home. Will be started on Augmentin to cover group C beta strep. Patient will follow with me on 12/06/2019 for wound check. Patient is to call with any questions or concerns or notices increasing redness, swelling, pain, temperature greater than 101.5. Patient read above instructions understood above instructions orthopedically stable for discharge to home on 11/30/2019 Stroke Is this a Stroke Patient?: No Acute Heart Failure - Is this a Heart Failure Patient?: No
[2019-11-30 12:32] VITALS: BP 139/95
== END 2019-11-30 12:50 | disposition home or self-care (01) | DRG 514 ==
LOC: ER 13:07 → EH 18:25 → 4W 22:11
PROVIDERS: ADMIT Orthopaedic Surgery; ATTEND Orthopaedic Surgery
PROC: 0L9700Z Drainage of Right Hand Tendon with Drainage Device, Open Approach (ICD-10-PCS; principal; 2019-11-26 18:00)
DX: M65.841 Other synovitis and tenosynovitis, right hand (principal); L03.011 Cellulitis of right finger; S60.464A Insect bite (nonvenomous) of right ring finger, initial encounter; B95.4 Other streptococcus as the cause of diseases classified elsewhere; F17.210 Nicotine dependence, cigarettes, uncomplicated; Z20.828 Contact with and (suspected) exposure to other viral communicable diseases
CPT/HCPCS: 01810; 36415; 80048; 80202; 82565; 85025; 85652; 86140; 87040; 87070; 87075; 87077; 87205; 87635; 99285; A9576; C9803; J1170; J2250; J2270; J2405; J2543; J2704; J3010; J3370; J3490; J7050; J7060; J7120